=== PATIENT | male | born 1990 | race Hispanic/Latino ===

== ENCOUNTER → 2017-02-06 | Outpatient (CLI) | payer OTHER ==
--- NOTE | 2017-02-06 11:03 | RAD ---
EXAM DESCRIPTION: Ankle,Right 3 Views CLINICAL HISTORY: 27 years, Male, PAIN IN RIGHT ANKLE COMPARISON: None. FINDINGS: No definite fracture or dislocation. Some longitudinal soft tissue calcification about 1.2 cm medial to the upper medial malleolus is likely chronic probably an old injury. Small amount soft tissue swelling laterally. Probable small joint effusion. IMPRESSION: No definite fracture or dislocation. Some mild soft tissue swelling laterally and probable small joint effusion Electronically signed by: Shahab Benjamin MD 02/06/2017 11:01 AM CDT
--- NOTE | 2017-02-06 11:03 | RAD ---
EXAM DESCRIPTION: Foot,Right 3 Views CLINICAL HISTORY: 27 years, Male, PAIN IN RIGHT FOOT COMPARISON: None. FINDINGS: No fracture or dislocation. Some minimal soft tissue swelling dorsum of the right. IMPRESSION: No fracture or dislocation. Electronically signed by: Shahab Benjamin MD 02/06/2017 11:02 AM CDT
== END | disposition home or self-care (01) ==
LOC: RAD 08:39
PROVIDERS: ATTEND Orthopaedic Surgery
DX: M25.571 Pain in right ankle and joints of right foot (principal); M79.671 Pain in right foot

== ENCOUNTER 2020-05-04 03:21 | Emergency (ER) | payer OTHER, SELFPAY ==
[2020-05-04 03:42] VITALS: TEMP 97.9; O2SAT 96
--- NOTE | 2020-05-04 03:48 | RAD ---
EXAM: XR Left Hand Complete, 3 or More Views CLINICAL HISTORY: The patient is 30 years old and is Male; hit refridgerator with left hand TECHNIQUE: Frontal, lateral and oblique views of the left hand. COMPARISON: No relevant prior studies available. FINDINGS: Bones/joints: Unremarkable. No acute fracture. No dislocation. Soft tissues: Unremarkable. No radiopaque foreign body. IMPRESSION: Normal left hand x-rays. Electronically signed by: Josue Bonner MD 05/04/2020 3:46 AM [facility]
--- NOTE | 2020-05-04 04:00 | ED.PDOC ---
History of Present Illness - General Chief Complaint: Upper Extremity Injury Stated Complaint: hit left hand with fridge Time Seen by Provider: 05/04/20 03:57 Source: patient, RN notes reviewed, Vital Signs reviewed Exam Limitations: no limitations - History of Present Illness Initial Comments: Patient is a 30-year-old male who presents with complaints of left hand pain and swelling. Patient hit a refrigerator earlier this evening because he was angry. The left hand is swollen. It is painful. The pain is throbbing in nature. Moderate in intensity, no radiation of the pain. Better with elevation and after icing, worse with palpation or movement. Occurred: this evening Pain - Upper Extremity: mild: Hand, left Method of Injury: direct blow Improving Factors: cold therapy Worsening Factors: movement Allergies/Adverse Reactions: Allergies NO KNOWN ALLERGY Allergy (Unverified 10/23/13 14:34) Home Medications: Ambulatory Orders Amoxicillin [Amoxil] 500 mg PO TID #21 cap 04/26/14 predniSONE 10 mg PO BID #10 tab 04/26/14 Review of Systems - Review of Systems Constitutional: States: no symptoms reported, see HPI. Denies: chills, fever, malaise, weakness EENTM: States: no symptoms reported. Denies: eye pain, blurred vision, double vision Respiratory: States: no symptoms reported. Denies: cough, short of breath, stridor Cardiology: States: no symptoms reported. Denies: chest pain, palpitations, syn cope Gastrointestinal/Abdominal: States: no symptoms reported. Denies: abdominal pain, diarrhea, nausea, vomiting Genitourinary: States: no symptoms reported. Denies: dysuria, frequency Musculoskeletal: States: see HPI, joint pain, joint swelling. Denies: back pain, neck pain Skin: States: no symptoms reported. Denies: change in color, rash Neurological: States: no symptoms reported. Denies: tingling, tremors, weakness Endocrine: States: no symptoms reported. Denies: increased hunger, increased thirst, increased urine Hematologic/Lymphatic: States: no symptoms reported. Denies: blood clots, easy bleeding All other Systems: Reviewed and Negative Past Medical History (General) - Patient Medical History Hx Seizures: No Hx Stroke: No Hx Dementia: No Hx Asthma: No Hx of COPD: No Hx Cardiac Disorders: No Hx Congestive Heart Failure: No Hx Pacemaker: No Hx Hypertension: No Hx Thyroid Disease: No Hx Diabetes: No Hx Gastroesophageal Reflux: No Hx Renal Disease: No Hx Cancer: No Hx of HIV: No Hx Hepatitis C: No Hx MRSA: No Surgical History: other - Vaccination History Hx Tetanus, Diphtheria Vaccination: Yes Hx Influenza Vaccination: No Hx Pneumococcal Vaccination: No Immunizations Up to Date: No - Social History Hx Tobacco Use: Yes Hx Chewing Tobacco Use: Yes Hx Alcohol Use: Yes - states he drank 4 beers tonight Hx Substance Use: No Hx Substance Use Treatment: No Hx Depression: No Feels Threatened In Home Enviroment: No Feels Threatened In a Relationship: No Hx Physical Abuse: No Hx Emotional Abuse: No Hx Suspected Abuse: No - Activities of Daily Living Hospice Agency (if applicable):: None - Female History Patient is a Female of Child Bearing Age (10 -59 yrs old): No Family Medical History - Family History Mother Living Status: Still Living Physical Exam - Physical Exam General Appearance: Alert, Anxious, Obvious distress, Well Developed, Well Groomed, Well Hydrated, Well Nourished Eyes, Ears, Nose, Throat Exam: PERRL/EOMI, normal ENT inspection, pharynx normal Neck: non-tender, full range of motion, supple Cardiovascular/Respiratory: no M/R/G, normal peripheral pulses, no JVD, normal breath sounds, no respiratory distress, tachycardia Abdominal Exam: non-tender, no organomegaly Back Exam: normal inspection, no CVA tenderness, no vertebral tenderness Shoulder Exam: normal inspection, non-tender, no evidence of injury Elbow/Forearm Exam: normal inspection, non-tender, no evidence of injury Wrist Exam: normal inspection, non-tender, no evidence of injury Hand Exam: normal ROM, bone tenderness, soft tissue tenderness, swelling Neuro/Tendon: normal sensation, normal motor functions, normal tendon functions, responds to pain, no evidence tendon injury Mental Status: oriented x 3 Skin Exam: normal color, warm/dry Progress - Progress Progress: Differential diagnosis: Hand contusion, hand fracture, head abrasion, hand sp rain among others. 05/04/20 04:03 X-ray of the hand is negative for fracture. Patient does have some mild tenderness to palpation swelling, but I do not believe there is any fracture. Patient with a hand contusion and abrasion. Plan on discharge home with instructions for RICE. I discussed the plan of care with the patient he voices understanding and agreement. Willard Kulkarni M.D. #[id number] - Results/Orders Results/Orders: EXAM: XR Left Hand Complete, 3 or More Views CLINICAL HISTORY: The patient is 30 years old and is Male; hit refridgerator with left hand TECHNIQUE: Frontal, lateral and oblique views of the left hand. COMPARISON: No relevant prior studies available. FINDINGS: Bones/joints: Unremarkable. No acute fracture. No dislocation. Soft tissues: Unremarkable. No radiopaque foreign body. IMPRESSION: Normal left hand x-rays. Electronically signed by: Josue Bonner MD 05/04/2020 3:46 Departure - Departure Clinical Impression: Hand contusion Qualifiers: Encounter type: initial encounter Laterality: left Qualified Code(s): S60.222A - Contusion of left hand, initial encounter Hand abrasion Qualifiers: Encounter type: initial encounter Laterality: left Qualified Code(s): S60.512A - Abrasion of left hand, initial encounter Time of Disposition: 04:06 Disposition: Discharge to Home or Self Care Condition: Good Departure Forms: ED Discharge - Pt. Copy, Patient Portal Self Enrollment Instructions: DI for Arm Pain, Contusion (DC), Skin Abrasions (DC) Diet: resume usual diet Activity: increase activity as tolerated Referrals: Eliazar Vela MD [Primary Care Provider] - 1 Week Home Medications: Ambulatory Orders Amoxicillin [Amoxil] 500 mg PO TID #21 cap 04/26/14 predniSONE 10 mg PO BID #10 tab 04/26/14
[2020-05-04 04:10] VITALS: BP 134/89
== END 2020-05-04 04:11 | disposition home or self-care (01) ==
LOC: ER 03:21
DX: S60.512A Abrasion of left hand, initial encounter (principal); W22.09XA Striking against other stationary object, initial encounter; Y92.9 Unspecified place or not applicable; Z87.891 Personal history of nicotine dependence